=== PATIENT | female | born 1990 | race Caucasian/White ===

== ENCOUNTER 2019-09-24 13:46 | Emergency (ER) | payer OTHER, SELFPAY ==
[2019-09-24 14:31] VITALS: BP 119/74; PULSE 83; RESP 20; TEMP 36.9; O2SAT 99; BMI 28.8
--- NOTE | 2019-09-24 14:39 | XR_ITS ---
PROCEDURE: XR CHEST 2V CLINICAL HISTORY: SOA/COUGH COMPARISON: No exams were available for comparison FINDINGS: The cardiomediastinal silhouette and pulmonary vascularity are within normal limits. The lungs are clear without infiltrates, suspicious nodules, or pleural effusions. No acute bony abnormalities. IMPRESSION: No acute findings. Dictated by: Deep Crowley MD 09/24/2019 15:09 Electronically signed by Deep Crowley MD in [place] 09/24/2019 15:09
--- NOTE | 2019-09-24 14:39 | HMH.EDUTC ---
[facility] Disposition Clinical Impression: Bronchitis Sinusitis Qualifiers: Sinusitis location: unspecified location Chronicity: unspecified Qualified Code(s): J32.9 - Chronic sinusitis, unspecified Disposition: Home, Self-Care Condition on Discharge: Good Instructions: Sinusitis (Alternative Therapy), Sinusitis, Acute Bronchitis, Cough, DI for Sinusitis, DI for Cough -- Adult Additional Instructions: ? Start antibiotic today. Be sure to complete entire prescription even if feeling better ? Monitor temp. Tylenol every 4 hours as needed and / or ibuprofen every 6 hours as needed ( As long as your primary care physician has told you that it ok to take both. For fever/aches/pains ER if no less than 101 despite Tylenol or Motrin ? Humidifier/vaporizer or hot steamy shower ? Inhaler every 4-6 hours as needed like we discussed. If unsure how to use it, ask pharmacist to demonstrate how. Should help open airways and improve cough, wheezing, and shortness of breath ? Mucinex during the day for your cough and cough suppressant only at night. Be sure to drink lots of water. Insurance may not cover a prescriptions for mucinex. Might be cheaper to get 400mg tablets and take 2 tablet in the morning, mid-day and evening with lots of water. *Start steroid today. Helps with inflammation therefore, cough and wheezing. Follow directions on the package. Reviewed side effects. Patient reports taking them before. Follow up IMMEDIATELY for new or worsening of symptoms OR no noticeable improvement over the next 48-72 hours. 911 immediately for any life threatening symptoms such as chest pain or difficulty breathing Stop taking Keflex and start Azithromycin You was tested for COVID19 and was given handout with instructions for Quarantining for COVID make sure to follow instructions closely Call back to the [facility] tomorrow or Wed to see if your test results are back and if positive or negative Follow up with family doctor if needed Return if needed Prescriptions: Albuterol Sulfate [Proventil-HFA 90mcg/puff Inh] 1 - 2 puffs IH Q4HP PRN #1 inh PRN Reason: Shortness Of Breath Transmission Status: Pending to [facility] methylPREDNISolone [Medrol 4mg tab] 4 mg PO DIRECTED #21 tab Transmission Status: Pending to [facility] Azithromycin [Z-Lexa 250mg Tab] 250 mg PO DIRECTED #6 tab Transmission Status: Pending to [facility] Referrals: Dannielle Peguero APRN [Emergency Provider] - As needed Forms: Work/School Release Time of Disposition: 15:20 Medical Decision Making - Angelo Inquiry Pt receiving controlled substance: No Angelo was queried for this patient: No Vital Signs: 09/24/19 14:31 Temperature 98.4 F Temperature Source Oral Pulse Rate [Left Brachial] 83 Respiratory Rate 20 Blood Pressure [Left Arm] 119/74 Blood Pressure Mean [Left Arm] 89 Blood Pressure Source [Left Arm] Automatic Cuff Blood Pressure Position [Left Arm] Sitting 02 Sat by Pulse Oximetry 99 Oxygen Delivery Method Room Air - Lab Data Lab results reviewed: Yes: I reviewed the patient's lab results. Orders (Tests/Meds): ORDERS Category Date Time Status SARS-CoV-2, ADRIANA Stat Lab 09/24/19 14:45 Received - Radiology Data #1 Image(s): Chest Image Reviewed: Yes I have reviewed radiologist's interpretation Preliminary Findings: Normal/NAD [facility] HPI - General Stated complaint: sore throat Time Seen by Provider: 09/24/19 14:40 Mode of Arrival: Ambulatory Source of Information: Patient Limitations: No Limitations Description of Symptoms (Recalled from Triage Doc. by RN): PATIENT C/O SORE THROAT, COUGH, HEADACHE, AND EAR PAIN SINCE LAST TUESDAY. SHE SAW HER PCP ON TUESDAY AND WAS DIAGNOSED AND TREATED FOR STREP THROAT WITH KEFLEX. SHE STATES THAT HER COUGH HAS BECOME WORSE AND MORE PRODUCTIVE WITH GREEN MUCOUS AND SHE IS SHORT OF BREATH. SHE ALSO STATES SHE HAS NAUSEA AND VOMITING WHEN SHE TAKES THE KEFLEX HEENT Symptoms (Recalled
[2019-09-24 15:25] VITALS: BP 119/74; PULSE 83; RESP 20; TEMP 36.9; O2SAT 99
[2019-09-24 19:34] LABS: UTC Strep Screen (Rapid) Negative (Negative)
[2019-09-26 15:24] LABS: Covid-19 Nasal PCR Sendout Lex NOT DETECTED
== END 2019-09-24 15:30 | disposition home or self-care (01) ==
PROVIDERS: Emergency Provider Nurse Practitioner; PCP Nurse Practitioner Family
DX: J20.9 Acute bronchitis, unspecified (principal); J32.9 Chronic sinusitis, unspecified; Z03.818 Encounter for observation for suspected exposure to other biological agents ruled out
CPT/HCPCS: 71046; 87880; 99201; 99202; U0004